=== PATIENT | female | born 1950 | race African-American/Black ===

== ENCOUNTER 2021-09-03 09:52 | Inpatient (IN) | payer MEDICARE, MEDICAID ==
[~2021-09-03] VITALS: Ht 167.6 cm; Wt 63.4 kg
[~2021-09-03 09:52] MED LIST: CARV12.544 PO; DAPA1TAB4 PO; SACU1TAB7 PO; SPIR25TA8 PO
[2021-09-03] MEDS ORDERED: SODIUM CHLORIDE 0.9% 1,000 ML IV ONE (10:30)
[2021-09-03 12:20] LABS: Basophils # (auto) 0 10 ^3/uL (0-0.2); Basophils % (auto) 0.5 % (0.0-2.0); Eosinophils # (auto) 0 10 ^3/uL (0-0.8); Eosinophils % (auto) 0.7 % (0.0-7.0); Hematocrit 40.7 % (36.0-46.0); Hemoglobin 13.5 g/dL (12.2-16.2); Lymphocytes # (auto) 1.2 10 ^3/uL (0.4-5.4); Lymphocytes % (auto) 22.8 % (10.0-50.0); Mean Corpuscular Hemoglobin 28.8 pg (28.0-32.0); Mean Corpuscular Hgb Conc. 33.1 g/dL (32.0-36.0); Monocytes # (auto) 0.3 10 ^3/uL (0-1.3); Monocytes % (auto) 5.8 % (0.0-12.0); Neutrophils # (auto) 3.8 10 ^3/uL (1.6-8.6); Neutrophils % (auto) 70.2 % (37.0-80.0); Red Blood Cells 4.68 10^6/uL (4.0-5.20); Red Cell Distribution Width 14.6 % (11.8-14.3); White Blood Cell 5.4 10^3/uL (4.4-10.8)
[2021-09-03 12:37] LABS: Albumin 3.4 g/dL (3.4-5.0); Anion Gap 4 (5-15); Blood Urea Nitrogen 27 mg/dL (7-18); Calcium 9.4 mg/dL (8.5-10.1); Carbon Dioxide 28 mmol/L (21-32); Chloride 108 mmol/L (98-107); Glucose 126 mg/dL (74-106); Potassium 4.3 mmol/L (3.5-5.1); Sodium 140 mmol/L (136-145)
[2021-09-03 12:43] LABS: Alanine Aminotransferase 28 U/L (13-56); Alkaline Phosphatase 68 U/L (45-117); Aspartate Aminotransferase 15 U/L (15-37); BUN/Creatinine Ratio 23.1; Bilirubin, Total 0.4 mg/dL (0.2-1.0); GFR African American 58 mL/min; GFR Non-African American 48 mL/min; Total Protein 7.2 g/dL (6.4-8.2)
[2021-09-03] MEDS ORDERED: ONDANSETRON HCL 4 MG/2 ML VIAL IV PRN (16:45)
[2021-09-03] MEDS ORDERED: DEXTROSE (50%) 50ML SYRG IV PRN (16:45)
[2021-09-03] MEDS ORDERED: NITROGLYCERIN 0.4 MG SL TAB SL PRN (16:45)
[2021-09-03] MEDS ORDERED: ACETAMINOPHEN 500 MG TAB PO PRN (16:45)
[2021-09-03] MEDS ORDERED: HYDROcodone-ACET 5/325MG TAB PO PRN (16:45)
[2021-09-03] MEDS ORDERED: MORPHINE SULFATE INJECTION 2 MG/ML SYRG IV PRN ×2 (16:45)
[2021-09-03] MEDS: InsuLIN REG 1unit/0.01ml Soln (100units/ml) SC SCH ×2 (17:00→22:00)
[2021-09-03] MEDS: ACCU-CHEK COMFORT CURVE STRIP VI SCH ×2 (17:00→22:22)
[2021-09-03 21:45] VITALS: BP 137/56
[2021-09-03] MEDS: SACUBITRIL VALSARTAN PO SCH (22:00)
[2021-09-03] MEDS: CARVEDILOL 3.125 MG TAB PO SCH (22:25)
[2021-09-04] MEDS ORDERED: AMLO-496 PO (05:07)
[2021-09-04 05:25] VITALS: BP 118/82
[2021-09-04] MEDS: InsuLIN REG 1unit/0.01ml Soln (100units/ml) SC SCH ×4 (06:19→22:00)
[2021-09-04] MEDS: ACCU-CHEK COMFORT CURVE STRIP VI SCH ×4 (06:19→21:56)
[2021-09-04 09:00] VITALS: BP 118/76
[2021-09-04] MEDS: CARVEDILOL 3.125 MG TAB PO SCH ×2 (09:51→22:00)
[2021-09-04] MEDS: SACUBITRIL VALSARTAN PO SCH ×2 (10:00→22:00)
[2021-09-04] MEDS ORDERED: AMLO-489 PO (10:42)
[2021-09-04 13:00] VITALS: BP 132/85
[2021-09-04 16:52] VITALS: BP 140/81
[2021-09-04 22:00] VITALS: BP_SYST 146; BP_SYST 149; BP_SYST 158; BP_DIAS 100; BP_DIAS 83; BP_DIAS 93
[2021-09-05 05:00] VITALS: BP_SYST 133; BP_SYST 136; BP_SYST 137; BP_DIAS 78; BP_DIAS 80; BP_DIAS 83
[2021-09-05] MEDS: InsuLIN REG 1unit/0.01ml Soln (100units/ml) SC SCH ×2 (07:00→11:22)
[2021-09-05] MEDS: ACCU-CHEK COMFORT CURVE STRIP VI SCH ×2 (07:16→11:22)
[2021-09-05 09:00] VITALS: BP 143/90
[2021-09-05] MEDS: CARVEDILOL 3.125 MG TAB PO SCH (09:36)
[2021-09-05] MEDS: SACUBITRIL VALSARTAN PO SCH (10:00)
[2021-09-05 12:45] VITALS: BP 116/77
== END 2021-09-05 16:15 | disposition home or self-care (01) | DRG 312 ==
LOC: ER 09:52 → EDBD 09:52 → TELE 16:34 → TELE-WESTW 21:45
PROVIDERS: ADMIT Nurse Practitioner Acute Care; ATTEND Internal Medicine
DX: I95.2 Hypotension due to drugs (principal); I50.22 Chronic systolic (congestive) heart failure; I13.0 Hypertensive heart and chronic kidney disease with heart failure and stage 1 through stage 4 chronic kidney disease, or unspecified chronic kidney disease; E86.1 Hypovolemia; I49.9 Cardiac arrhythmia, unspecified; N18.31 Chronic kidney disease, stage 3a; E78.5 Hyperlipidemia, unspecified; Z20.822 Contact with and (suspected) exposure to COVID-19; E11.22 Type 2 diabetes mellitus with diabetic chronic kidney disease; Z79.84 Long term (current) use of oral hypoglycemic drugs; Z79.899 Other long term (current) drug therapy; Z82.49 Family history of ischemic heart disease and other diseases of the circulatory system; Z90.710 Acquired absence of both cervix and uterus; Z95.810 Presence of automatic (implantable) cardiac defibrillator
CPT/HCPCS: 36415; 70450; 71045; 80053; 82962; 83036; 83880; 84484; 85025; 87081; 87426; 93005; 96360; 97163; G0378

== ENCOUNTER 2023-10-28 05:27 | Inpatient (IN) | payer MEDICARE, MEDICAID ==
[~2023-10-28] VITALS: Ht 175.3 cm; Wt 68.5 kg
[2023-10-28] VITALS (16 sets, daily range): BP systolic 111–126; BP diastolic 73–87; PULSE 67–117; RESP 0–26; TEMP 98.4; O2SAT 88–100
[~2023-10-28 05:27] MED LIST changes: +AMLO1TAB22 PO
[2023-10-28] MEDS ORDERED: dilTIAZem 25 MG/5 ML VIAL IV ONE (05:45)
[2023-10-28] MEDS ORDERED: IPRATROPIUM BROM 0.5 MG/2.5ML INH SOL NEB ONE (06:00)
[2023-10-28] MEDS ORDERED: ALBUTEROL MEDNEB 2.5 mg/3ml NEB NEB ONE (06:00)
[2023-10-28 06:18] LABS: Basophils # (auto) 0 10 ^3/uL (0-0.2); Basophils % (auto) 0.5 % (0.0-2.0); Eosinophils # (auto) 0.1 10 ^3/uL (0-0.8); Eosinophils % (auto) 0.8 % (0.0-7.0); Hematocrit 35.3 % (36.0-46.0); Hemoglobin 11.7 g/dL (12.2-16.2); Lymphocytes # (auto) 1.2 10 ^3/uL (0.4-5.4); Lymphocytes % (auto) 12.1 % (10.0-50.0); Mean Corpuscular Hemoglobin 28.6 pg (28.0-32.0); Mean Corpuscular Hgb Conc. 33.1 g/dL (32.0-36.0); Mean Corpuscular Volume 86.5 fL (80.0-100.0); Monocytes # (auto) 0.8 10 ^3/uL (0-1.3); Neutrophils # (auto) 7.6 10 ^3/uL (1.6-8.6); Neutrophils % (auto) 78.6 % (37.0-80.0); Nucleated Red Blood Cells % 0.1 %; Red Blood Cells 4.08 10^6/uL (4.0-5.20); Red Cell Distribution Width 14.1 % (11.8-14.3); White Blood Cell 9.6 10^3/uL (4.4-10.8)
[2023-10-28 06:25] LABS: INR 1.01 (0.9-1.15); Partial Thromboplastin Time 27.9 SEC (24.5-34.5); Prothrombin Time 10.6 sec (9.3-11.8)
[2023-10-28 06:27] LABS: Alanine Aminotransferase 23 U/L (7-40); Alkaline Phosphatase 63 U/L (46-116); Anion Gap 7 (5-15); Aspartate Aminotransferase 24 U/L (13-40); BUN/Creatinine Ratio 10.2 (10.0-20.0); Bilirubin, Total 0.6 mg/dL (0.2-1.0); Blood Urea Nitrogen 10 mg/dL (9-23); Calcium 8.8 mg/dL (8.5-10.1); Carbon Dioxide 25 mmol/L (20-30); Chloride 110 mmol/L (98-107); Glucose 149 mg/dL (74-106); Potassium 4.5 mmol/L (3.5-5.1); Sodium 142 mmol/L (136-145); Total Protein 6.5 g/dL (5.7-8.2)
[2023-10-28] MEDS ORDERED: ASPirin-EC 81 mg tab PO ONE (07:00)
[2023-10-28] MEDS ORDERED: FUROSEMIDE 40 MG/4 ML VIAL IV ONE (07:00)
[2023-10-28 07:15] LABS: Base Excess -2.8 mmol/L (-2.0-2.0)
[2023-10-28] MEDS ORDERED: NITROGLYCERIN 0.4 MG SL TAB SL PRN (08:30)
[2023-10-28] MEDS ORDERED: ACETAMINOPHEN 325 MG TAB PO PRN (08:30)
[2023-10-28] MEDS ORDERED: ALBUTEROL MEDNEB 2.5 mg/3ml NEB NEB PRN (08:30)
[2023-10-28] MEDS ORDERED: MORPHINE SULFATE INJ 2 MG/ml SYRG IV PRN (08:30)
[2023-10-28] MEDS ORDERED: ONDANSETRON HCL 4 MG/2 ML VIAL IV PRN (08:30)
[2023-10-28] MEDS ORDERED: DEXTROSE (50%) 50ML SYRG IV PRN (09:00)
[2023-10-28 09:30] LABS: Urine Bacteria NONE SEEN /hpf (None Seen); Urine Blood Negative /uL (Negative); Urine Clarity Clear (Clear); Urine Color Colorless (Yellow); Urine Protein, UAD Negative (Negative); Urine Specific Gravity 1.007 (1.001-1.035); Urine Urobilinogen Normal (Negative); Urine WBC <1 /hpf (0 - 5); Urine pH 5.5 (5.0-8.0)
[2023-10-28 09:39] LABS: Triglycerides 73 mg/dL (< 150)
[2023-10-28 09:40] LABS: LDL Cholesterol 59 mg/dL (< 100)
[2023-10-28 09:41] LABS: Cholesterol 131 mg/dL (< 200); HDL Cholesterol 53 mg/dL (40-59)
[2023-10-28] MEDS: IPRATROPIUM BROM 0.5 MG/2.5ML INH SOL NEB SCH ×4 (09:44→22:13)
[2023-10-28] MEDS: ALBUTEROL MEDNEB 2.5 mg/3ml NEB NEB SCH ×4 (09:44→22:13)
[2023-10-28] MEDS ORDERED: IOHEXOL 350 MG/ML 100ML IJ ONE (09:49)
[2023-10-28] MEDS: SACUBITRIL VALSARTAN PO SCH ×2 (10:00→22:00)
[2023-10-28] MEDS: FUROSEMIDE 20 MG/2 ML VIAL IV SCH (10:00)
[2023-10-28] MEDS: CARVEDILOL 12.5 MG TAB PO SCH ×2 (10:45→22:09)
[2023-10-28] MEDS: amLODIPine BESYLATE 5 MG TAB PO SCH (10:46)
[2023-10-28] MEDS: ACCU-CHEK COMFORT CURVE STRIP VI SCH ×3 (10:47→22:12)
[2023-10-28] MEDS: ENOXAPARIN SOD 40 MG/0.4 ML SYRINGE SC SCH (10:47)
[2023-10-28] MEDS: InsuLIN REG 1unit/0.01ml Soln (100units/ml) SC SCH ×3 (11:02→22:00)
[2023-10-29] VITALS (20 sets, daily range): BP systolic 102–122; BP diastolic 59–79; PULSE 76–124; RESP 16–22; TEMP 98.2–99.2; O2SAT 93–100
[2023-10-29] MEDS: ALBUTEROL MEDNEB 2.5 mg/3ml NEB NEB SCH ×6 (02:09→22:14)
[2023-10-29] MEDS: IPRATROPIUM BROM 0.5 MG/2.5ML INH SOL NEB SCH ×6 (02:09→22:14)
[2023-10-29 05:06] LABS: Basophils # (auto) 0 10 ^3/uL (0-0.2); Basophils % (auto) 0.3 % (0.0-2.0); Eosinophils # (auto) 0.1 10 ^3/uL (0-0.8); Eosinophils % (auto) 1.2 % (0.0-7.0); Hematocrit 36.1 % (36.0-46.0); Hemoglobin 11.6 g/dL (12.2-16.2); Lymphocytes # (auto) 1.3 10 ^3/uL (0.4-5.4); Lymphocytes % (auto) 17.8 % (10.0-50.0); Mean Corpuscular Hemoglobin 28.5 pg (28.0-32.0); Mean Corpuscular Hgb Conc. 32.3 g/dL (32.0-36.0); Mean Corpuscular Volume 88.3 fL (80.0-100.0); Monocytes # (auto) 0.6 10 ^3/uL (0-1.3); Monocytes % (auto) 7.7 % (0.0-12.0); Neutrophils # (auto) 5.5 10 ^3/uL (1.6-8.6); Nucleated Red Blood Cells % 0.2 %; Red Blood Cells 4.08 10^6/uL (4.0-5.20); Red Cell Distribution Width 13.9 % (11.8-14.3); White Blood Cell 7.5 10^3/uL (4.4-10.8)
[2023-10-29 05:28] LABS: Alanine Aminotransferase 17 U/L (7-40); Albumin 3.6 g/dL (3.2-4.8); Alkaline Phosphatase 52 U/L (46-116); Anion Gap 8 (5-15); Aspartate Aminotransferase < 8 U/L (13-40); BUN/Creatinine Ratio 9.8 (10.0-20.0); Bilirubin, Total 0.9 mg/dL (0.2-1.0); Blood Urea Nitrogen 9 mg/dL (9-23); Calcium 8.8 mg/dL (8.5-10.1); Carbon Dioxide 26 mmol/L (20-30); Chloride 108 mmol/L (98-107); Glucose 82 mg/dL (74-106); Potassium 3.4 mmol/L (3.5-5.1); Sodium 142 mmol/L (136-145); Total Protein 6.1 g/dL (5.7-8.2)
[2023-10-29] MEDS: InsuLIN REG 1unit/0.01ml Soln (100units/ml) SC SCH ×4 (05:38→22:00)
[2023-10-29] MEDS: ACCU-CHEK COMFORT CURVE STRIP VI SCH ×4 (05:38→22:14)
[2023-10-29] MEDS: ENOXAPARIN SOD 40 MG/0.4 ML SYRINGE SC SCH (09:17)
[2023-10-29] MEDS: FUROSEMIDE 20 MG/2 ML VIAL IV SCH (09:17)
[2023-10-29] MEDS: amLODIPine BESYLATE 5 MG TAB PO SCH (10:00)
[2023-10-29] MEDS: CARVEDILOL 12.5 MG TAB PO SCH ×2 (10:00→22:11)
[2023-10-29] MEDS ORDERED: POTASSIUM EFFERVESENT TAB 25 MEQ PO ONE (11:15)
[2023-10-29] MEDS ORDERED: FUROSEMIDE 20 MG/2 ML VIAL IV ONE (11:30)
[2023-10-29] MEDS: SACUBITRIL VALSARTAN PO SCH ×2 (13:58→22:10)
[2023-10-29] MEDS ORDERED: AZEL0.054 EACHEYE (14:28)
[2023-10-29] MEDS ORDERED: CYCL0.05 EACHEYE (14:29)
[2023-10-29] MEDS: FUROSEMIDE 40 MG/4 ML VIAL IV SCH (18:14)
[2023-10-29] MEDS: ATORVASTATIN 20 MG TAB PO SCH (22:00)
[2023-10-29] MEDS: ENOXAPARIN SOD 80 MG/0.8ML SYRINGE SC SCH (22:12)
[2023-10-30] VITALS (20 sets, daily range): BP systolic 90–116; BP diastolic 59–71; PULSE 82–115; RESP 16–22; TEMP 36.9; O2SAT 93–100
[2023-10-30] MEDS: IPRATROPIUM BROM 0.5 MG/2.5ML INH SOL NEB SCH ×6 (02:57→22:18)
[2023-10-30] MEDS: ALBUTEROL MEDNEB 2.5 mg/3ml NEB NEB SCH ×6 (02:57→22:18)
[2023-10-30] MEDS: FUROSEMIDE 40 MG/4 ML VIAL IV SCH ×2 (06:12→17:27)
[2023-10-30] MEDS: ACCU-CHEK COMFORT CURVE STRIP VI SCH ×4 (06:12→22:02)
[2023-10-30] MEDS: InsuLIN REG 1unit/0.01ml Soln (100units/ml) SC SCH ×4 (06:12→21:51)
[2023-10-30 08:35] LABS: Alanine Aminotransferase 16 U/L (7-40); Albumin 3.8 g/dL (3.2-4.8); Alkaline Phosphatase 50 U/L (46-116); Anion Gap 6 (5-15); Aspartate Aminotransferase 10 U/L (13-40); BUN/Creatinine Ratio 12.7 (10.0-20.0); Blood Urea Nitrogen 13 mg/dL (9-23); Carbon Dioxide 31 mmol/L (20-30); Chloride 104 mmol/L (98-107); Glucose 90 mg/dL (74-106); Potassium 3.4 mmol/L (3.5-5.1); Sodium 141 mmol/L (136-145)
[2023-10-30 08:37] LABS: Bilirubin, Total 0.8 mg/dL (0.2-1.0); Total Protein 6.5 g/dL (5.7-8.2)
[2023-10-30 08:45] LABS: CRP High Sensitivity 5.71 mg/dL (<1.0)
[2023-10-30 08:50] LABS: Basophils # (auto) 0 10 ^3/uL (0-0.2); Basophils % (auto) 0.7 % (0.0-2.0); Eosinophils # (auto) 0.2 10 ^3/uL (0-0.8); Eosinophils % (auto) 3.1 % (0.0-7.0); Hematocrit 35.8 % (36.0-46.0); Hemoglobin 11.9 g/dL (12.2-16.2); Lymphocytes # (auto) 2.1 10 ^3/uL (0.4-5.4); Lymphocytes % (auto) 36.7 % (10.0-50.0); Mean Corpuscular Hemoglobin 28.5 pg (28.0-32.0); Mean Corpuscular Hgb Conc. 33.3 g/dL (32.0-36.0); Mean Corpuscular Volume 85.6 fL (80.0-100.0); Monocytes # (auto) 0.5 10 ^3/uL (0-1.3); Monocytes % (auto) 8.7 % (0.0-12.0); Neutrophils # (auto) 2.9 10 ^3/uL (1.6-8.6); Neutrophils % (auto) 50.8 % (37.0-80.0); Nucleated Red Blood Cells % 0.2 %; Red Blood Cells 4.18 10^6/uL (4.0-5.20); Red Cell Distribution Width 13.7 % (11.8-14.3); White Blood Cell 5.7 10^3/uL (4.4-10.8)
[2023-10-30 09:14] LABS: Magnesium 1.9 mg/dL (1.6-2.6)
[2023-10-30] MEDS: ENOXAPARIN SOD 80 MG/0.8ML SYRINGE SC SCH ×2 (09:22→21:50)
[2023-10-30] MEDS: SACUBITRIL VALSARTAN PO SCH ×2 (09:22→21:47)
[2023-10-30] MEDS: amLODIPine BESYLATE 5 MG TAB PO SCH (09:23)
[2023-10-30] MEDS: CARVEDILOL 12.5 MG TAB PO SCH ×2 (09:23→21:47)
[2023-10-30] MEDS ORDERED: MAGNESIUM SULFATE 1GM/100ML 100 ML IV ONE (13:00)
[2023-10-30] MEDS ORDERED: POTASSIUM EFFERVESENT TAB 25 MEQ PO ONE (13:00)
[2023-10-30] MEDS: ATORVASTATIN 20 MG TAB PO SCH (21:48)
[2023-10-31] VITALS (19 sets, daily range): BP systolic 105–141; BP diastolic 63–82; PULSE 69–109; RESP 14–20; TEMP 36.8; O2SAT 92–100
[2023-10-31 01:17] LABS: COVID19 ANTIGEN SOFIA FIA NEGATIVE (NEGATIVE)
[2023-10-31 01:18] LABS: Rapid Influenza A Negative (Negative); Rapid Influenza B Negative (Negative)
[2023-10-31] MEDS: ALBUTEROL MEDNEB 2.5 mg/3ml NEB NEB SCH ×6 (02:17→22:08)
[2023-10-31] MEDS: IPRATROPIUM BROM 0.5 MG/2.5ML INH SOL NEB SCH ×6 (02:17→22:08)
[2023-10-31] MEDS: FUROSEMIDE 40 MG/4 ML VIAL IV SCH (05:57)
[2023-10-31] MEDS: InsuLIN REG 1unit/0.01ml Soln (100units/ml) SC SCH ×4 (05:57→21:41)
[2023-10-31] MEDS: ACCU-CHEK COMFORT CURVE STRIP VI SCH ×4 (05:58→21:35)
[2023-10-31 06:12] LABS: Basophils # (auto) 0 10 ^3/uL (0-0.2); Basophils % (auto) 0.7 % (0.0-2.0); Eosinophils # (auto) 0.2 10 ^3/uL (0-0.8); Eosinophils % (auto) 2.9 % (0.0-7.0); Hematocrit 37.4 % (36.0-46.0); Hemoglobin 12.4 g/dL (12.2-16.2); Lymphocytes # (auto) 1.9 10 ^3/uL (0.4-5.4); Lymphocytes % (auto) 30.9 % (10.0-50.0); Mean Corpuscular Hemoglobin 28.4 pg (28.0-32.0); Mean Corpuscular Hgb Conc. 33.1 g/dL (32.0-36.0); Mean Corpuscular Volume 85.9 fL (80.0-100.0); Monocytes # (auto) 0.6 10 ^3/uL (0-1.3); Monocytes % (auto) 9.9 % (0.0-12.0); Neutrophils # (auto) 3.4 10 ^3/uL (1.6-8.6); Neutrophils % (auto) 55.6 % (37.0-80.0); Nucleated Red Blood Cells % 0.1 %; Red Blood Cells 4.36 10^6/uL (4.0-5.20); Red Cell Distribution Width 13.4 % (11.8-14.3); White Blood Cell 6.1 10^3/uL (4.4-10.8)
[2023-10-31 06:43] LABS: Alanine Aminotransferase 10 U/L (7-40); Albumin 3.8 g/dL (3.2-4.8); Alkaline Phosphatase 48 U/L (46-116); Anion Gap 8 (5-15); BUN/Creatinine Ratio 15.8 (10.0-20.0); Blood Urea Nitrogen 15 mg/dL (9-23); Carbon Dioxide 30 mmol/L (20-30); Chloride 102 mmol/L (98-107); Glucose 88 mg/dL (74-106); Magnesium 2.1 mg/dL (1.6-2.6); Potassium 3.7 mmol/L (3.5-5.1); Sodium 140 mmol/L (136-145)
[2023-10-31 06:44] LABS: Aspartate Aminotransferase 9 U/L (13-40); Bilirubin, Total 0.6 mg/dL (0.2-1.0); Total Protein 6.5 g/dL (5.7-8.2)
[2023-10-31] MEDS ORDERED: POTASSIUM EFFERVESENT TAB 25 MEQ PO ONE (08:00)
[2023-10-31] MEDS: SACUBITRIL VALSARTAN PO SCH ×3 (09:23→21:42)
[2023-10-31] MEDS: amLODIPine BESYLATE 5 MG TAB PO SCH (09:26)
[2023-10-31] MEDS ORDERED: DIGOXIN (250MCG/ML) 2 ML AMPULE IV SCH (10:00)
[2023-10-31] MEDS ORDERED: DIGOXIN 0.25 MG TAB PO ONE ×2 (10:00→16:00)
[2023-10-31] MEDS: CARVEDILOL 12.5 MG TAB PO SCH ×2 (10:01→21:42)
[2023-10-31] MEDS: ENOXAPARIN SOD 80 MG/0.8ML SYRINGE SC SCH ×2 (10:03→21:42)
[2023-10-31] MEDS: ATORVASTATIN 20 MG TAB PO SCH (21:40)
[2023-11-01] VITALS (17 sets, daily range): BP systolic 113–134; BP diastolic 62–81; PULSE 61–84; RESP 14–20; TEMP 36.8; O2SAT 95–100
[2023-11-01] MEDS: ALBUTEROL MEDNEB 2.5 mg/3ml NEB NEB SCH ×6 (02:19→22:17)
[2023-11-01] MEDS: IPRATROPIUM BROM 0.5 MG/2.5ML INH SOL NEB SCH ×6 (02:19→22:17)
[2023-11-01] MEDS: ACCU-CHEK COMFORT CURVE STRIP VI SCH ×4 (06:18→21:46)
[2023-11-01] MEDS: InsuLIN REG 1unit/0.01ml Soln (100units/ml) SC SCH ×4 (06:20→21:46)
[2023-11-01 06:41] LABS: Basophils # (auto) 0 10 ^3/uL (0-0.2); Basophils % (auto) 0.8 % (0.0-2.0); Eosinophils # (auto) 0.2 10 ^3/uL (0-0.8); Eosinophils % (auto) 3.5 % (0.0-7.0); Hemoglobin 11.8 g/dL (12.2-16.2); Lymphocytes # (auto) 2.2 10 ^3/uL (0.4-5.4); Lymphocytes % (auto) 42.6 % (10.0-50.0); Mean Corpuscular Hemoglobin 28.3 pg (28.0-32.0); Mean Corpuscular Hgb Conc. 32.8 g/dL (32.0-36.0); Mean Corpuscular Volume 86.3 fL (80.0-100.0); Monocytes # (auto) 0.5 10 ^3/uL (0-1.3); Monocytes % (auto) 9.6 % (0.0-12.0); Neutrophils # (auto) 2.2 10 ^3/uL (1.6-8.6); Neutrophils % (auto) 43.5 % (37.0-80.0); Nucleated Red Blood Cells % 0.1 %; Red Blood Cells 4.18 10^6/uL (4.0-5.20); Red Cell Distribution Width 13.2 % (11.8-14.3); White Blood Cell 5.1 10^3/uL (4.4-10.8)
[2023-11-01 07:53] LABS: Alanine Aminotransferase 12 U/L (7-40); Alkaline Phosphatase 50 U/L (46-116); Anion Gap 7 (5-15); BUN/Creatinine Ratio 18.6 (10.0-20.0); Blood Urea Nitrogen 18 mg/dL (9-23); Calcium 9.5 mg/dL (8.5-10.1); Carbon Dioxide 30 mmol/L (20-30); Chloride 102 mmol/L (98-107); Glucose 89 mg/dL (74-106); Potassium 3.9 mmol/L (3.5-5.1); Sodium 139 mmol/L (136-145)
[2023-11-01 07:54] LABS: Albumin 3.8 g/dL (3.2-4.8); Aspartate Aminotransferase 11 U/L (13-40); Bilirubin, Total 0.5 mg/dL (0.2-1.0); Total Protein 6.6 g/dL (5.7-8.2)
[2023-11-01] MEDS: SACUBITRIL VALSARTAN PO SCH ×2 (10:00→21:44)
[2023-11-01] MEDS: FUROSEMIDE 40 MG/4 ML VIAL IV SCH (10:19)
[2023-11-01] MEDS: DIGOXIN 0.125 MG TAB PO SCH (10:19)
[2023-11-01] MEDS: ENOXAPARIN SOD 80 MG/0.8ML SYRINGE SC SCH ×2 (10:21→21:42)
[2023-11-01] MEDS: CARVEDILOL 12.5 MG TAB PO SCH ×2 (10:22→21:45)
[2023-11-01] MEDS: amLODIPine BESYLATE 5 MG TAB PO SCH (10:25)
[2023-11-01] MEDS: ATORVASTATIN 20 MG TAB PO SCH (21:45)
[2023-11-02] VITALS (13 sets, daily range): BP systolic 113–152; BP diastolic 73–79; PULSE 61–76; RESP 14–18; TEMP 97.6–98.5; O2SAT 96–100
[2023-11-02] MEDS: ALBUTEROL MEDNEB 2.5 mg/3ml NEB NEB SCH ×4 (02:33→14:14)
[2023-11-02] MEDS: IPRATROPIUM BROM 0.5 MG/2.5ML INH SOL NEB SCH ×4 (02:33→14:14)
[2023-11-02 05:47] LABS: Basophils # (auto) 0 10 ^3/uL (0-0.2); Basophils % (auto) 0.9 % (0.0-2.0); Eosinophils # (auto) 0.1 10 ^3/uL (0-0.8); Eosinophils % (auto) 2.4 % (0.0-7.0); Hematocrit 37.4 % (36.0-46.0); Hemoglobin 12.2 g/dL (12.2-16.2); Lymphocytes % (auto) 38.7 % (10.0-50.0); Mean Corpuscular Hemoglobin 28.5 pg (28.0-32.0); Mean Corpuscular Hgb Conc. 32.7 g/dL (32.0-36.0); Mean Corpuscular Volume 87.1 fL (80.0-100.0); Monocytes # (auto) 0.5 10 ^3/uL (0-1.3); Monocytes % (auto) 9.8 % (0.0-12.0); Neutrophils # (auto) 2.5 10 ^3/uL (1.6-8.6); Neutrophils % (auto) 48.2 % (37.0-80.0); Nucleated Red Blood Cells % 0.1 %; Red Blood Cells 4.29 10^6/uL (4.0-5.20); Red Cell Distribution Width 13.1 % (11.8-14.3); White Blood Cell 5.2 10^3/uL (4.4-10.8)
[2023-11-02 05:50] LABS: Chloride 103 mmol/L (98-107); Potassium 3.8 mmol/L (3.5-5.1); Sodium 136 mmol/L (136-145)
[2023-11-02 05:51] LABS: Anion Gap 4 (5-15); Calcium 9.3 mg/dL (8.5-10.1); Carbon Dioxide 29 mmol/L (20-30)
[2023-11-02 05:56] LABS: Blood Urea Nitrogen 16 mg/dL (9-23); Glucose 84 mg/dL (74-106)
[2023-11-02] MEDS: ACCU-CHEK COMFORT CURVE STRIP VI SCH ×2 (05:57→11:43)
[2023-11-02] MEDS: InsuLIN REG 1unit/0.01ml Soln (100units/ml) SC SCH ×2 (06:00→11:30)
[2023-11-02] MEDS: ENOXAPARIN SOD 80 MG/0.8ML SYRINGE SC SCH (10:14)
[2023-11-02] MEDS: DIGOXIN 0.125 MG TAB PO SCH (10:14)
[2023-11-02] MEDS: amLODIPine BESYLATE 5 MG TAB PO SCH (10:14)
[2023-11-02] MEDS: CARVEDILOL 12.5 MG TAB PO SCH (10:14)
[2023-11-02] MEDS: FUROSEMIDE 40 MG/4 ML VIAL IV SCH (10:14)
[2023-11-02] MEDS: SACUBITRIL VALSARTAN PO SCH (10:15)
[2023-11-02] MEDS ORDERED: FURO1TAB33 PO (10:38)
[2023-11-02] MEDS ORDERED: APIX5TAB PO (10:38)
[2023-11-02] MEDS ORDERED: DIGO1TAB48 PO (10:38)
== END 2023-11-02 15:15 | disposition home health service (06) | DRG 291 ==
LOC: EDBD 05:27 → ER 05:27 → TELE 08:29 → TELE-WESTW 14:17
PROVIDERS: ADMIT Internal Medicine Pulmonary Disease; ATTEND Student in an Organized Health Care Education/Training Program
DX: I11.0 Hypertensive heart disease with heart failure (principal); I50.23 Acute on chronic systolic (congestive) heart failure; J96.21 Acute and chronic respiratory failure with hypoxia; J90 Pleural effusion, not elsewhere classified; Z20.822 Contact with and (suspected) exposure to COVID-19; E11.9 Type 2 diabetes mellitus without complications; E78.5 Hyperlipidemia, unspecified; I48.91 Unspecified atrial fibrillation; E87.6 Hypokalemia; I25.5 Ischemic cardiomyopathy; I25.10 Atherosclerotic heart disease of native coronary artery without angina pectoris; Z79.82 Long term (current) use of aspirin; Z79.899 Other long term (current) drug therapy; Z82.49 Family history of ischemic heart disease and other diseases of the circulatory system; Z88.0 Allergy status to penicillin; I25.2 Old myocardial infarction; Z90.710 Acquired absence of both cervix and uterus; Z95.810 Presence of automatic (implantable) cardiac defibrillator
CPT/HCPCS: 36415; 36600; 70450; 71045; 71275; 76604; 80048; 80053; 80061; 80162; 81001; 82533; 82805; 82962; 83036; 83735; 83880; 84443; 84484; 85025; 85379; 85610; 85730; 86141; 87426; 87804; 93005; 93306; 93886; 93970; 94640; 96374; 97110; 97116; 97163; 97530; G0378; J1815